=== PATIENT | male | born 1995 | race Two or more races ===

== ENCOUNTER 2024-07-30 09:49 | Emergency (ER) | payer SELFPAY ==
[2024-07-30] MEDS: Diphtheria,Pertussis(Acell),Tetanus Vaccine 0.5 ML Syringe IM ONE (11:11)
== END 2024-07-30 11:53 | disposition home or self-care (01) ==
LOC: MW.ED 09:49
DX: S31.35XA Open bite of scrotum and testes, initial encounter (principal); Z75.8 Other problems related to medical facilities and other health care; Z23 Encounter for immunization; W54.0XXA Bitten by dog, initial encounter
CPT/HCPCS: 90471; 90715; 99283